=== PATIENT | male | born 1985 | race Caucasian/White ===

== ENCOUNTER 2017-02-03 02:49 | Emergency (ER) | payer MEDICAID, OTHER ==
[~2017-02-03] VITALS: Ht 182.9 cm; Wt 75.0 kg
[2017-02-03 02:54] VITALS: Ht 182.9 cm; Wt 75.0 kg
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
[2017-02-03] MEDS ORDERED: LIDOCAINE 1% (MDV) 20 ML INJ INJ STA (03:01)
[2017-02-03] MEDS ORDERED: DIPHTH/TET/ACEL PERTUSS (ADULT) 0.5 ML VIAL IM ONE (03:30)
--- NOTE | 2017-02-03 03:47 | RADRPT ---
PROCEDURE: CT Cervical Spine. CLINICAL INDICATION: Trauma TECHNIQUE: A CT of the cervical spine was performed utilizing thin section axial images from the skull base through the thoracic inlet. Sagittal and coronal reformatted images were made. The CTDI vol is 22.38 mGy and the DLP is 641.75 mGycm. One or more the following dose reduction techniques were utilized: Automated exposure control, adjus tment of the mA/ or kV according to patient's size, or use of iterative reconstruction technique. COMPARISON: None. FINDINGS: Mild reversal of the normal cervical lordosis in the midcervical spine which could be secondary to p ositioning or muscle spasm. Minimal curvature of the cervical spine with convexity to the right. No acute fracture or dislocation seen. Minimal scattered degenerative changes. IMPRESSION: Mild reversal of the normal cervical lordosis in the midcervical spine which could be secondary to p ositioning or muscle spasm. No acute fracture or dislocation seen. Minimal degenerative changes. Pl ease see above. RPTAT: HJES .Stalin Holbrook MD, Date Time Electronically viewed and signed by .Stalin Holbrook MD, on 02/03/2017 03:47 .S/
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
[2017-02-03] MEDS ORDERED: LIDOCAINE 1%/EPI 30 ML INJ INJ STA (04:56)
[2017-02-03 05:56] VITALS: BP 132/89; PULSE 82; RESP 20
== END 2017-02-03 06:28 | disposition home or self-care (01) ==
LOC: E/R 02:49
DX: S01.01XA Laceration without foreign body of scalp, initial encounter (principal); Y04.0XXA Assault by unarmed brawl or fight, initial encounter; Z23 Encounter for immunization
CPT/HCPCS: 12002; 70450; 72125; 90715; Z7610; 90471